=== PATIENT | male | born 1955 | race Caucasian/White ===

== ENCOUNTER 2025-07-02 15:15 | Outpatient (AMB) | payer MEDICARE, SELFPAY ==
--- NOTE | 2025-07-02 15:17 | A.PHYSOV ---
Vital Signs 07/02/25 15:18 Height 5 ft 8 in Weight 220 lb BMI 33.4 Intake Visit Reasons: F/U after injection 06/05/2025 Intake Note: Patient is a 69 year old male here for follow up after having left L5-S1 JERONIMO on 06/05/25. Veterinary Technician Assistant Required: No Allergies No Known Allergies Allergy (Verified 07/02/25 15:17) HPI Comments Details: Mr. Gaona is a 69-year-old male seen in evaluation today for lumbar radiculitis. Patient underwent L5-S1 JERONIMO on 06/05/2025. Patient reports 90% reduction of his pain. He is able to stand for longer periods of time and ambulate longer distances. He is overall very happy with his results. Patient is using less gabapentin as well. Procedure: L5-S1 JERONIMO 06/05/2025 90% reduction of his pain PFSH Surgical History H/O hernia repair History of back surgery Social History Alcohol intake: current Comment: social Patient Tobacco Use Status: Never used Tobacco Use of substances other than those prescribed or required for medical reasons: No Current occupational status: retired Review of Systems Narrative Low back pain with radiculopathy. No incontinence, saddle anesthesia urinary retention. Physical Exam Exam Exam: Lumbar Spine: Examination of his lumbar spine, there is no visible swelling or deformity. He is less tender to lower lumbar facets. He is otherwise nontender. Full range of motion of his lumbar spine. He does have an increase in pain with facet loading. Special Tests: Lhermittes sign was negative Heel Toe walk is normal Left straight leg raise: Negative Right straight leg raise: Negative Special tests Víctor test is negative Ganslen's test is negative SI Joint compression test negative Racquel test negative Piriformis stretch is negative Lower Extremities: Full range of motion bilateral lower extremities. No calf pain or edema. Neuro: Sensation: Intact to lower extremities bilaterally Strength L2 (Psoas): 5/5 on the left and 5/5 on the right. L3 (Quads): 5/5 on the left and 5/5 on the right. L4 (Ant tibialis): 5/5 on the left and 5/5 on the right. L5 (EHL) 5/5 on the left and 5/5 on the right. S1 (Gastroc): 5/5 on the left and 5/5 on the right. DTR L4: (Patellar) Left 2 Right 2 S1: (Achilles) Left 2 Right 2 Babinski Downgoing No pathologic clonus. No involuntary movement. Vital Signs: BMI result Body Mass Index 33.4 Assessment & Plan Assessment & Plan (1) Lumbar radiculopathy: Code(s): M54.16 - Radiculopathy, lumbar region Category: Medical (2) Lumbar spondylosis: Code(s): M47.816 - Spondylosis without myelopathy or radiculopathy, lumbar region Category: Medical Plan Mr. Gaona is a 69-year-old male seen in evaluation today for lumbar radiculitis. Patient responded very well to L5-S1 JERONIMO. He will continue his home exercise plan and medications as prescribed. Follow-up with our office as needed. Thank you for allowing me to participate in the care of your patient. Coding Level of Care Code Tele Est Pt Level 3 (29837) Diagnoses Lumbar radiculopathy M54.16 Lumbar spondylosis M47.816
[2025-07-02 15:18] VITALS: BMI 33.4
--- OUTSIDE RECORDS SUMMARY | 2025-07-02 20:31 | XMS_ITS | Clinical Summary ---
Author Organization [facility] lin Address [address] [address] Care Team Providers Care Improvement Specialist Name Role Phone Fide Tolentino NP Primary Care Provider [phone] Allergies No known active allergies Medications traMADoL (ULTRAM) 50 mg tablet 06/23/2024 Active gabapentin (NEURONTIN) 600 MG tablet 07/03/2024 Active meloxicam (MOBIC) 15 MG tablet 06/16/2024 Active amLODIPine (NORVASC) 10 MG tablet Take 1 tablet (10 mg total) by mouth 03/30/2022 Active MULTIVITAMIN ORAL Take 1 tablet by mouth 03/21/2011 Active Social History Tobacco Use Types Packs/Day Years Used Date Smoking Tobacco: Never Passive Smoke Exposure: Never Smokeless Tobacco: Never Tobacco Cessation:Counseling Given: Yes PHQ-2 Answer Date Recorded PHQ-2 Score Patient declined 07/07/2024 Sex and Gender Information Value Date Recorded Sex Assigned at Not on file Legal Sex Male 8:47 AM EDT Gender Identity Not on file Sexual Orientation Not on file Last Filed Vital Signs Vital Sign Reading Time Taken Comments Blood Pressure 123/68 07/07/2024 5:33 PM EST Pulse 89 07/07/2024 5:33 PM EST Temperature 36.7 C (98.1 F) 07/07/2024 5:33 PM EST Respiratory Rate 12 07/07/2024 5:33 PM EST Oxygen Saturation 99% 02/03/2021 9:38 AM EDT Inhaled Oxygen Concentration - - Weight 90.3 kg (199 lb) 02/03/2021 9:38 AM EDT Height 175.3 cm (5' 9 ) 02/03/2021 9:38 AM EDT Body Mass Index 29.39 02/03/2021 9:38 AM EDT Plan of Treatment Not on file Medical Devices Not on file Insurance [employer] MEDICARE Care Teams Improvement Specialist Relationship Specialty Start Date End Date Fide Tolentino NP [address] [place] [address] PCP - General 02/03/21
--- OUTSIDE RECORDS SUMMARY | 2025-07-02 20:31 | XMS_ITS | Clinical Summary ---
Author Organization [facility] Address [address] [place] [address] Phone Care Team Providers Care Fish Cleaner Name Role Phone Farhan Santoyo MD Primary Care Provider [phone] Allergies No known active allergies Medications gabapentin (NEURONTIN) 600 mg tablet Take 1 tablet (600 mg total) by mouth 3 (three) times a day. 07/03/2024 Active amLODIPine (NORVASC) 10 mg tablet Take 1 tablet (10 mg total) by mouth 1 (one) time each day. 03/30/2022 Active acetaminophen (TYLENOL) 500 mg tablet Take 2 tablets (1,000 mg total) by mouth every 6 (six) hours if needed for mild pain. Active Active Problems Problem Noted Date Diagnosed Date Surgical procedure, elective 07/16/2024 Surgical History Surgery Date Site/Laterality Comments CHOLECYSTECTOMY HERNIA REPAIR X2 Medical History Medical History Date Comments Hypertension Neuromuscular disorder (CMS/HCC V24, CMS/HCC V28 ) Social History Tobacco Use Types Packs/Day Years Used Date Smoking Tobacco: Never Smokeless Tobacco: Never Tobacco Cessation:Counseling Given: Not Answered Alcohol Use Standard Drinks/Week Comments Never 0 (1 standard drink = 0.6 oz pur e alcohol) Interpersonal Safety Answer Date Record ed Physical Abuse Unrecognized value 07/16/2024 Verbal Abuse Unrecognized value 07/16/2024 Sex and Gender Information Value Date Recorded Sex Assigned at Male 07/16/2024 10:25 AM EST Legal Sex Male 3:12 PM EST Gender Identity Male 07/16/2024 10:25 AM EST Sexual Orientation Straight 07/16/2024 10 :25 AM EST Obstetrics History Last Filed Vital Signs Vital Sign Reading Time Taken Comments Blood Pressure 141/88 07/18/2024 2:18 PM EST Pulse 108 07/18/2024 2:18 PM EST Temperature 37.4 C (99.3 F) 07/18/2024 2:18 PM EST Respiratory Rate 14 07/18/2024 2:18 PM EST Oxygen Saturation 97% 07/18/2024 2:18 PM EST Inhaled Oxygen Concentration - - Weight 83.9 kg (185 lb) 07/16/2024 9:00 PM EST Height 172.7 cm (5' 7.99 ) 07/16/2024 9:00 PM ES T Body Mass Index 28.14 07/16/2024 9:00 PM EST Plan of Treatment Health Maintenance Due Date Last Done Comments Colorectal Cancer Screening: Colonoscopy 1955 Pneumococcal Vaccine: 50+ Years (1 of 1 - PCV) 11/29/2005 Zoster Vaccines (1 of 2) 11/29/2005 Cholesterol Screening (Lipid Panel) 07/05/2024 Hepatitis C Screening 07/05/2024 Medicare Annual Wellness Visit 07/05/2024 Social Influencers of Health Screening 07/05/2024 Depression Screening 08/13/2024 COVID-19 Vaccine (4 - 2024-2 6 season) 2025 09/17/2021, 01/07/2021, 12/10/2020 Influenza Vaccine (#1) 2025 Falls Risk Assessment 07/18/2025 07/18/2024 DTaP,Tdap,and Td Vaccines (2 - Td or Tdap) 09/30/2033 09/30/2023 RSV Immunization Adult Patients Completed 09/30/2023 HIB Vaccines Aged Out No longer eligi ble based on patient's age to complete this topic HPV Vaccines Aged Out No longer eligi ble based on patient's age to complete this topic Hepatitis A Vaccines Aged Out No long er eligible based on patient's age to complete this topic Hepatitis B Vaccines Aged Out No long er eligible based on patient's age to complete this topic IPV Vaccines Aged Out No longer eligi ble based on patient's age to complete this topic MMR Vaccines Aged Out No longer eligi ble based on patient's age to complete this topic Meningococcal ACWY Vaccine Aged Out N o longer eligible based on patient's age to complete this topic Meningococcal B Vaccine Aged Out No l onger eligible based on patient's age to complete this topic RSV Immunization Patients Under 20 months Aged Out No longer eligible b ased on patient's age to complete this topic Varicella Vaccines Aged Out No longer eligible based on patient's age to complete this topic Medical Devices Implanted Type Area Despatch Clerk Device Identifier Shelf Expiration Date Model / Serial / Lot Duraseal Exact Spine Sealant 5ml W Applicator - [id number] - [id number] Implanted:Qty : 1 on 07/16/2024 by Link Eng MD at [facility] [employer] Left: Spine Lumbar [employer] [id number] 07/12/2025 / [id number] Powder Surgifoam Absorb Gel - Sn/A - [id number] Implanted:Qty : 1 on 07/16/2024 by Link Eng MD at [facility] [employer] Left: Spine Lumbar [employer] [id number] 02/14/20261977 N/A / [id number] Powder Surgifoam Absorb Gel - S1978 - [id number] Implanted:Qty : 1 on 07/16/2024 by Link Eng MD at [facility] [employer] Left: Spine Lumbar [employer] [id number] 02/14/20261977 [id number] Insurance NEFTALY [id number] [id number] [employer] MEDICARE ADVANTAGE Advance Directives * Full Code - Default (Latest Code Status on File) Date Activated Date Inactivated Comments 07/16/2024 4:35 PM 07/18/2024 7:34 PM This is orde r is used when code status has not been discussed with the patient, or code status is otherwise unknown/unconfirmed To update the patient's code status, place a code status order. Do not modify or discontinue any currently active code status orders. * Full Code - Default Date Activated Date Inactivated Comments 07/16/2024 10:35 AM 07/16/2024 4:35 PM This is ord er is used when code status has not been discussed with the patient, or code status is otherwise unknown/unconfirmed To update the patient's code status, place a code status order. Do not modify or discontinue any currently active code status orders. Care Teams Fish Cleaner Relationship Specialty Start Date End Date Farhan Santoyo MD [address], [place] PCP - General Family Medicine 07/16/24
== END 2025-07-02 16:16 | disposition home or self-care (01) ==
PROVIDERS: PCP Family Medicine; Visit Provider Physician Assistant
DX: M54.16 Radiculopathy, lumbar region (principal); M47.816 Spondylosis without myelopathy or radiculopathy, lumbar region
CPT/HCPCS: 99213

== ENCOUNTER → 2025-07-02 15:15 | Outpatient (BNVA) | payer MEDICARE, SELFPAY | PROVIDERS: PCP Family Medicine; Visit Provider Physician Assistant | DX: M47.816 Spondylosis without myelopathy or radiculopathy, lumbar region (principal); M54.16 Radiculopathy, lumbar region | CPT/HCPCS: 99212 ==